=== PATIENT | male | born 1990 | race Caucasian/White ===

== ENCOUNTER 2021-03-24 02:56 | Emergency (ER) | payer SELFPAY ==
[~2021-03-24] VITALS: Ht 182.9 cm; Wt 81.6 kg
--- NOTE | 2021-03-24 03:07 | NUR ---
[facility] AT PTS BEDSIDE
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
[2021-03-24] MEDS ORDERED: TDAP [DIPH/PERTUSSIS/TET] 0.5 ML VIAL IM ONE (03:41)
[2021-03-24] MEDS ORDERED: HYDROCODONE/APAP 5/325MG TABLET ONE (03:41)
--- NOTE | 2021-03-24 03:45 | NUR ---
patient to CT
--- NOTE | 2021-03-24 03:52 | NUR ---
patient back from CT
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
[2021-03-24] MEDS: TDAP [DIPH/PERTUSSIS/TET] 0.5 ML VIAL IM ONE ×2 (03:57→04:23)
[2021-03-24] MEDS ORDERED: HYDROCODONE/APAP 5/325MG TABLET PO ONE (04:00)
[2021-03-24] MEDS ORDERED: HYDR-3972 PO (04:16)
--- NOTE | 2021-03-24 04:19 | NUR ---
WOUND TX DONE TO PT'S LACERATION ON CHEEK; NO ACTIVE BLEEDING NOTED. WOUND KEPT CLEAN
--- NOTE | 2021-03-24 04:22 | NUR ---
PT CHANGED HIS MIND, NOW WANTED TO GET TETANUS SHOT, ADMINISTERED ORDERED.
--- NOTE | 2021-03-24 04:41 | NUR ---
Patient discharged to home in stable condition. Written and verbal after care instructions given. Patient verbalizes understanding of instruction. rx given. ambulated out of ER with a steady gait.
[2021-03-24 04:44] VITALS: BP 120/72
== END 2021-03-24 04:45 | disposition home or self-care (01) ==
LOC: ER 02:59
DX: S01.411A Laceration without foreign body of right cheek and temporomandibular area, initial encounter (principal); S10.83XA Contusion of other specified part of neck, initial encounter; W22.8XXA Striking against or struck by other objects, initial encounter; Y93.89 Activity, other specified; Y92.89 Other specified places as the place of occurrence of the external cause; Y99.8 Other external cause status
CPT/HCPCS: 12011; 70450; 70486; 72125; 90471; 90715; 99285; A6403